=== PATIENT | male | born 1995 | race Caucasian/White ===

== ENCOUNTER 2024-12-05 10:18 | Outpatient (REF) | payer BC, SELFPAY ==
[2024-12-05 14:47] LABS: Abs Immature Grans 0.01 10^3/uL (0.0-0.06); Absolute Basophil Count 0.04 10^3/uL (0.0-0.2); Absolute Eosinophil Count 0.18 10^3/uL (0.0-0.7); Absolute Lymphocyte Count 1.57 10^3/uL (1.2-3.4); Absolute Monocyte Count 0.35 10^3/uL (0.1-0.8); Absolute Neutrophil Count 2.69 10^3/uL (1.2-6.7); Basophils % 0.8 %; Eosinophils % 3.7 %; HCT 45.3 % (40.0-50.0); HGB 16.3 g/dL (13.5-17.5); Immature Grans % 0.2 %; Lymphocytes % 32.4 %; MCH 31.3 pg (27.0-33.0); MCV 87 fL (80-95); MPV 10.1 fL (8.0-11.0); Monocytes % 7.2 %; Neutrophils % 55.7 %; Platelet Count 197 10^3/uL (130-400); RDW 11.8 % (11.8-14.1); RDW-SD 37.2 fL; WBC 4.84 10^3/uL (4.4-10.8)
[2024-12-05 15:25] LABS: Anion Gap 6.3 mmol/L (3-11); BUN 14 mg/dL (7-18); CO2 30.7 mmol/L (21.0-32.0); CREATININE 0.9 mg/dL (0.70-1.30); Calcium 9.1 mg/dL (8.5-10.1); Calculated LDL 74 mg/dL (<100); Chloride 105 mmol/L (98-107); Cholesterol 156 mg/dL (<200); Estimated GFR 120.05 (mL/min/1.73m2); Glucose 72 mg/dL (74-106); HDL Cholesterol 59 mg/dL (40-60); Sodium 142 mmol/L (136-145); Triglyceride 117 mg/dL (<150)
== END 2024-12-05 10:19 | disposition home or self-care (01) ==
LOC: NCHCN 10:18
PROVIDERS: PCP Physician Assistant; Visit Provider Physician Assistant
DX: E55.9 Vitamin D deficiency, unspecified (principal); Z00.00 Encounter for general adult medical examination without abnormal findings; Z13.220 Encounter for screening for lipoid disorders
CPT/HCPCS: 80048; 80061; 82306; 85025

== ENCOUNTER 2025-01-02 16:26 | Outpatient (REF) | payer BC, SELFPAY ==
[2025-01-03 19:05] LABS: HIV-1/2 Ag & Ab Screen Negative (Negative)
[2025-01-04 11:08] LABS: Syphilis Serology (RPR) Negative (Negative)
[2025-01-04 18:42] LABS: Chlamydia Result Negative (Negative); GC Result Negative (Negative)
== END 2025-01-02 16:27 | disposition home or self-care (01) ==
LOC: NCHCN 16:26
PROVIDERS: PCP Physician Assistant; Visit Provider Physician Assistant
DX: Z11.3 Encounter for screening for infections with a predominantly sexual mode of transmission (principal)
CPT/HCPCS: 87389; 87491; 87591; 86592; 86695; 86696

== ENCOUNTER 2025-01-24 16:29 | Outpatient (REF) | payer BC, SELFPAY ==
[2025-01-25 18:24] LABS: Hepatitis C Ab w Rflx HCV PCR Negative (Negative)
== END 2025-01-24 16:30 | disposition home or self-care (01) ==
LOC: NCHCN 16:29
PROVIDERS: PCP Physician Assistant; Visit Provider Physician Assistant
DX: Z11.3 Encounter for screening for infections with a predominantly sexual mode of transmission (principal)
CPT/HCPCS: 86803

== ENCOUNTER 2025-04-06 13:37 | Outpatient (REF) | payer BC, SELFPAY ==
[2025-04-09 10:02] LABS: HIV-1/2 Ag & Ab Screen Negative (Negative)
[2025-04-09 10:26] LABS: Hepatitis C Ab w Rflx HCV PCR Negative (Negative); Syphilis Serology (RPR) Negative (Negative)
[2025-04-09 11:50] LABS: Chlamydia Result Negative (Negative); GC Result Negative (Negative)
[2025-04-09 20:21] LABS: Source Urine; Trich. vaginalis amplified RNA Negative (Negative)
== END 2025-04-06 13:38 | disposition home or self-care (01) ==
LOC: NCHCN 13:37
PROVIDERS: PCP Physician Assistant; Visit Provider Physician Assistant
DX: Z11.3 Encounter for screening for infections with a predominantly sexual mode of transmission (principal)
CPT/HCPCS: 86803; 87389; 87491; 87591; 87661; 86592

== ENCOUNTER 2025-06-22 08:09 | Outpatient (REF) | payer BC, SELFPAY ==
[2025-06-22 22:45] LABS: HIV-1/2 Ag & Ab Screen Negative (Negative)
[2025-06-25 10:34] LABS: Hepatitis C Ab w Rflx HCV PCR Negative (Negative)
[2025-06-25 11:01] LABS: Syphilis Serology (RPR) Negative (Negative)
[2025-06-25 12:09] LABS: Chlamydia Result Negative (Negative); GC Result Negative (Negative)
== END 2025-06-22 08:10 | disposition home or self-care (01) ==
LOC: NCHCN 08:09
PROVIDERS: PCP Physician Assistant; Visit Provider Physician Assistant
DX: Z11.59 Encounter for screening for other viral diseases (principal)
CPT/HCPCS: 86803; 87389; 87491; 87591; 86592